=== PATIENT | female | born 1955 | race Caucasian/White ===

== ENCOUNTER 2019-12-01 19:51 | Emergency (ER) | payer MEDICARE, OTHER ==
[~2019-12-01] VITALS: Ht 177.8 cm; Wt 114.0 kg
--- NOTE | 2019-12-01 20:33 | PHYS DOC ---
Past History Past Medical History: Arthritis, Cancer, Diverticulitis, Fibromyalgia, Hypertension, Hypothyroid, Kidney Stones Past Surgical History: Cholecystectomy, Oophorectomy, Other Additional Past Surgical Histo: thyroid, Right mastectomy Smoking: Non-smoker Alcohol Use: None Drug Use: None General Adult EDM: Chief Complaint: ABDOMINAL PAIN HPI: HPI: 64-year-old female presents with 10 day history of intermittent nausea and diarrhea with left-sided abdominal pain. Patient reports 2 days ago patient started to have some vomiting and diarrhea. Reports pain has become more intense with radiation to left flank. Patient does report history of prior kidney stones. Patient does report she was in [place] early October but has not traveled since. Denies known sick contacts. Patient denies fever or chills. Denies shortness of air or cough. Denies trauma. Patient reports taking some oxycodone prior to arrival with some improvement of symptoms. Review of Systems: Review of Systems: Constitutional: Denies fever or chills Eyes: Denies redness or eye pain HENT: Denies nasal congestion or sore throat Respiratory: Denies cough or shortness of breath Cardiovascular: Denies chest pain or palpitations GI: Reports abdominal pain, nausea, vomiting, and diarrhea : Denies dysuria or hematuria Musculoskeletal: Denies joint pain; reports left flank pain Integument: Denies rash or skin lesions Neurologic: Denies headache, focal weakness or sensory changes Complete systems were reviewed and found to be within normal limits, except as documented in this note. Heart Score: HEART Score for Chest Pain: HEART Score for Chest Pain Response (Comments) Value History Slighlty/Non-Suspicious 0 ECG Normal 0 Age > 65 2 Risk Factors 1 or 2 Risk Factors 1 Troponin < Normal Limit 0 Total 3 Risk Factors: Risk Factors: DM, Current or recent (<one month) smoker, HTN, HLP, family h istory of CAD, obesity. Risk Scores: Score 0 - 3: 2.5% MACE over next 6 weeks - Discharge Home Score 4 - 6: 20.3% MACE over next 6 weeks - Admit for Clinical Observation Score 7 - 10: 72.7% MACE over next 6 weeks - Early Invasive Strategies Allergies: Allergies: Allergies Coded Allergies Type Severity Reaction Last Updated Verified NSAIDS (Non-Steroidal Anti-Inflamma Allergy Severe Itching 12/01/19 Yes Sulfa (Sulfonamide Antibiotics) Allergy Severe Itching 12/01/19 Yes carisoprodol Allergy Severe Unknown 12/01/19 Yes fluconazole Allergy Severe Itching 12/01/19 Yes lansoprazole Allergy Severe Unknown 12/01/19 Yes omeprazole Allergy Severe Unknown 12/01/19 Yes aspirin Allergy Unknown Unknown 12/01/19 Yes acetaminophen Adverse Reaction Severe Unknown 12/01/19 Yes hydrocodone Adverse Reaction Severe Unknown 12/01/19 Yes midazolam Adverse Reaction Mild Unknown 12/01/19 Yes Physical Exam: PE: Constitutional: Well developed, well nourished, no acute distress, non-toxic chavez earance HENT: Normocephalic, atraumatic, oropharynx moist Eyes: Conjunctiva normal, no discharge Neck: Normal range of motion, no tenderness, supple Lungs & Thorax: No respiratory distress, equal chest rise and fall Abdomen: Soft, left upper quadrant tenderness, obese Skin: Warm, dry, no erythema, no rash Back: No tenderness, left CVA tenderness Extremities: No tenderness, ROM intact, no edema Neurologic: Alert and oriented X 3, no focal deficits noted Psychologic: Affect normal, judgment normal Current Patient Data: Vital Signs: Vital Signs Date Time Temp Pulse Resp B/P (MAP) Pulse Ox O2 Delivery O2 Flow Rate FiO2 12/01/19 19:51 97.8 86 18 195/92 (126) 98 Room Air EKG: EKG: @2034 NSR at 69bpm, NO ST elevation, QRS 96ms, QT/QTc 394/424ms Radiology/Procedures: Radiology/Procedures: PROCEDURE: CT ABDOMEN PELVIS WO CONTRAST PQRS Compliance Statement: One or more of the following individualized dose reduction techniques were utilized for this examination: 1. Automated exposure control 2. Adjustment of the mA and/or kV according to patient size 3. Use of iterative reconstruction technique CT abdomen/pelvis without contrast 12/01/2019 8:22 PM INDICATION: Severe left flank pain, nausea vomiting and diarrhea. COMPARISON: None available TECHNIQUE: Multiple axial CT images of the abdomen and pelvis were obtained without intravenous contrast. Coronal and sagittal reformats are provided. FINDINGS: Lung bases are clear. Heart size within normal limits. Evaluation of solid abdominal viscera is limited by lack of intravenous contrast. Liver, spleen, and bilateral adrenal glands are within normal limits. Gallbladder is surgically absent. There is mild fullness of the tail the pancreas. Otherwise, there is mild fatty atrophy of the pancreas. Abdominal aorta is normal in course and caliber. There is haziness in the root of small bowel mesentery with shotty lymphadenopathy which may represent mesenteric adenitis. Small and large bowel are normal in caliber. No bowel obstruction is identified. There is focal inflammation in the left lateral abdomen measuring approximately 1.4 x 0.9 cm surrounding a focal area of fat. There is mild adjacent fascial thickening. No associated diverticula is identified. Consideration may be given for epiploic appendagitis. There is a 3 mm calculus at the left ureteropelvic junction resulting in mild to moderate left hydronephrosis. Bilateral renal parapelvic cysts are present. There is a 2 mm nonobstructing calculus in interpolar right kidney. Additional 1 mm nonobstructing calculus is identified in the mid to superior pole the right kidney. Simple appearing bilateral renal cortical cysts are present. No suspicious renal mass. Urinary bladder is within normal limits in degree of end. Prostate and seminal vesicles are normal. No suspicious osseous abnormality is identified. IMPRESSION: 1. There is a 3 mm calculus at the left ureteropelvic junction resulting in mild to moderate left hydronephrosis. Nonobstructing right renal calculi are identified. Bilateral simple appearing renal parapelvic and cortical cysts are identified. 2. Focal area of fat stranding adjacent to the descending colon could reflect epiploic appendagitis. Area of inflammation measures 1.4 x 0.9 cm. 3. Focal hazy attenuation within the root of the small bowel mesentery favors mesenteric adenitis. Recommend 3 month follow-up CT abdomen/pelvis as early lymphoma could have similar appearance. 4. Mild fullness in the tail the pancreas may represent normal pancreatic tissue with mild fatty atrophy of the rest of the pancreas. Attention on follow-up exams may be of benefit. Electronically signed by: Leslie Umana MD (12/01/2019 9:20 PM) [facility] Course & Med Decision Making: Course & Med Decision Making Pertinent Labs and Imaging studies reviewed. (See chart for details) Patient presents with 10 day history of intermittent left-sided abdominal pain with associated nausea, vomiting, and diarrhea. Patient reports now with radiation to left flank. Patient does report history of kidney stone. Afebrile. Denies known sick contacts. Symptomatic treatment provided. IV fluid hydration given. Labs obtained and posted to chart. UA with microscopic hematuria. CT abdomen/pelvis with findings of 3mm left sided UPJ stone with mild hydronephrosis. Flomax provided. CT imaging also noted area consistent for epiploic appendage redness. Some haziness noted about the mesentery with report of induration for follow-up. A copy of CT report provided to patient for outpatient follow-up with her PCP/GI. [facility] report reviewed. Last controlled substance was Percocet which was prescribed 09/07/18. Patient stable for discharge with outpatient follow-up with PCP/GI/urologist. GI referral provided. Discussed findings and plan with patient, who acknowledges understanding and agreement. Dragon Disclaimer: DragHackerHAND Disclaimer: This electronic medical record was generated, in whole or in part, using a voice recognition dictation system. Departure Departure: Impression: Primary Impression: Kidney stone Additional Impressions: Nausea vomiting and diarrhea Appendicitis epiploica Abnormal finding on CT scan Hypokalemia Disposition: 01 HOME, SELF-CARE Condition: STABLE Referrals: PRASAD ALLEN (PCP) LUIS ALFREDO ARNOLD MD Patient Instructions: Diarrhea, Jkzw-pp-Ikwz, Diet for Diarrhea, Adult, Diet for Kidney Stones, Hypokalemia-Brief, Incidental Abnormal Radiological Finding, Kidney Stones, [id number], Nausea and Vomiting, Srbn-[id number], Potassium Content of Foods Additional Instructions: Please give a copy of your CT results to your PCP for future follow-up/re-exami nation/re-imaging Scripts Oxycodone HCl/Acetaminophen (Percocet 5-325 mg Tablet) 1 Each Tablet 0.5-1 TAB PO Q4-6HRS PRN for PAIN MDD 4 Tablet(s), #10 TAB 0 Refills Prov: RUTHANN INTERIANO DO 12/01/19 Ondansetron (ONDANSETRON ODT) 4 Mg Tab.rapdis 1 TAB PO PRN Q6-8HRS PRN for NAUSEA, #16 TAB Prov: RUTHANN INTERIANO DO 12/01/19 Tamsulosin Hcl (FLOMAX) 0.4 Mg Cap.er.24h 1 CAP PO DAILY for kidney stone, #7 CAP Prov: RUTHANN INTERIANO DO 12/01/19 RUTHANN INTERIANO DO Dec 01, 2019 20:32
[2019-12-01] MEDS: ONDANSETRON PF 4 MG/2 ML VIAL. IVP ONE ×2 (20:58→22:11)
[2019-12-01] MEDS: IV NORMAL SALINE 1,000ML 1,000 ML IV ONE (20:59)
[2019-12-01 21:08] LABS: BASO % 0 % (0-3); EOS # 0.2 x10^3/uL (0.0-0.7); EOS % 2 % (0-3); HEMOGLOBIN 13.4 g/dL (12.0-15.5); LYMPH # 1.5 x10^3/uL (1.0-4.8); LYMPH % 16 % (24-48); MEAN CORPUSCULAR HEMOGLOBIN 32 pg (25-35); MEAN CORPUSCULAR HGB CONC 34 g/dL (31-37); MEAN CORPUSCULAR VOLUME 96 fL (79-100); MONO # 0.8 x10^3/uL (0.0-1.1); MONO % 8 % (0-9); NEUT # 6.8 x10^3uL (1.8-7.7); NEUT % 73 % (31-73); PLATELET COUNT 226 x10^3/uL (140-400); RED BLOOD COUNT 4.15 x10^6/uL (3.50-5.40); RED CELL DISTRIBUTION WIDTH 14.7 % (11.5-14.5); WHITE BLOOD COUNT 9.3 x10^3/uL (4.0-11.0)
--- NOTE | 2019-12-01 21:23 | RAD ---
PQRS Compliance Statement: One or more of the following individualized dose reduction techniques were utilized for this examination: 1. Automated exposure control 2. Adjustment of the mA and/or kV according to patient size 3. Use of iterative reconstruction technique CT abdomen/pelvis without contrast 12/01/2019 8:22 PM INDICATION: Severe left flank pain, nausea vomiting and diarrhea. COMPARISON: None available TECHNIQUE: Multiple axial CT images of the abdomen and pelvis were obtained without intravenous contrast. Coronal and sagittal reformats are provided. FINDINGS: Lung bases are clear. Heart size within normal limits. Evaluation of solid abdominal viscera is limited by lack of intravenous contrast. Liver, spleen, and bilateral adrenal glands are within normal limits. Gallbladder is surgically absent. There is mild fullness of the tail the pancreas. Otherwise, there is mild fatty atrophy of the pancreas. Abdominal aorta is normal in course and caliber. There is haziness in the root of small bowel mesentery with shotty lymphadenopathy which may represent mesenteric adenitis. Small and large bowel are normal in caliber. No bowel obstruction is identified. There is focal inflammation in the left lateral abdomen measuring approximately 1.4 x 0.9 cm surrounding a focal area of fat. There is mild adjacent fascial thickening. No associated diverticula is identified. Consideration may be given for epiploic appendagitis. There is a 3 mm calculus at the left ureteropelvic junction resulting in mild to moderate left hydronephrosis. Bilateral renal parapelvic cysts are present. There is a 2 mm nonobstructing calculus in interpolar right kidney. Additional 1 mm nonobstructing calculus is identified in the mid to superior pole the right kidney. Simple appearing bilateral renal cortical cysts are present. No suspicious renal mass. Urinary bladder is within normal limits in degree of end. Prostate and seminal vesicles are normal. No suspicious osseous abnormality is identified. IMPRESSION: 1. There is a 3 mm calculus at the left ureteropelvic junction resulting in mild to moderate left hydronephrosis. Nonobstructing right renal calculi are identified. Bilateral simple appearing renal parapelvic and cortical cysts are identified. 2. Focal area of fat stranding adjacent to the descending colon could reflect epiploic appendagitis. Area of inflammation measures 1.4 x 0.9 cm. 3. Focal hazy attenuation within the root of the small bowel mesentery favors mesenteric adenitis. Recommend 3 month follow-up CT abdomen/pelvis as early lymphoma could have similar appearance. 4. Mild fullness in the tail the pancreas may represent normal pancreatic tissue with mild fatty atrophy of the rest of the pancreas. Attention on follow-up exams may be of benefit. Electronically signed by: Leslie Umana MD (12/01/2019 9:20 PM) [facility]
[2019-12-01 21:24] LABS: CLARITY,URINE HAZY; COLOR,URINE YELLOW; GLUCOSE,URINE NEG (NEG)
[2019-12-01 21:25] LABS: NITRITE,URINE NEG (NEG)
[2019-12-01 21:28] LABS: RBC,URINE >40 /HPF (0-2)
[2019-12-01 21:29] LABS: BACTERIA,URINE MOD /HPF (0-FEW); SQUAMOUS EPITHELIAL CELL,UR MOD /LPF; WBC,URINE RARE /HPF (0-4)
[2019-12-01 21:30] LABS: BILIRUBIN,URINE MOD (NEG)
[2019-12-01 21:34] LABS: ALBUMIN 3.3 g/dL (3.4-5.0); ALBUMIN/GLOBULIN RATIO 0.8 (1.0-1.7); ALK PHOS 97 U/L (46-116); ALT (SGPT) 22 U/L (14-59); ANION GAP 11 (6-14); AST (SGOT) 16 U/L (15-37); BLOOD UREA NITROGEN 11 mg/dL (7-20); BUN/CREATININE RATIO 11 (6-20); CALCIUM 8.7 mg/dL (8.5-10.1); CARBON DIOXIDE 25 mmol/L (21-32); CHLORIDE 105 mmol/L (98-107); GFR 55.5; GLUCOSE 120 mg/dL (70-99); LIPASE 88 U/L (73-393); SODIUM 141 mmol/L (136-145); TOTAL BILIRUBIN 0.3 mg/dL (0.2-1.0); TOTAL PROTEIN 7.3 g/dL (6.4-8.2)
[2019-12-01] MEDS: POTASSIUM CHLORIDE 20 MEQ TABLET.ER. PO ONE (21:51)
[2019-12-01] MEDS: TAMSULOSIN 0.4 MG CAP.ER.24H. PO ONE (21:51)
[2019-12-01] MEDS ORDERED: TAMS0.4C97 PO (22:03)
[2019-12-01] MEDS ORDERED: OXYC-325 PO (22:03)
[2019-12-01] MEDS ORDERED: ONDA4TAB12 PO (22:03)
[2019-12-01 22:23] VITALS: BP 178/94
--- NOTE | 2019-12-01 22:40 | EKG ---
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
== END 2019-12-01 22:15 | disposition home or self-care (01) ==
LOC: ER 19:51
DX: N20.0 Calculus of kidney (principal); R11.2 Nausea with vomiting, unspecified; R19.7 Diarrhea, unspecified; K36 Other appendicitis; R93.5 Abnormal findings on diagnostic imaging of other abdominal regions, including retroperitoneum; E87.6 Hypokalemia; M79.7 Fibromyalgia; I10 Essential (primary) hypertension; E03.9 Hypothyroidism, unspecified; M19.90 Unspecified osteoarthritis, unspecified site; Z87.442 Personal history of urinary calculi; Z90.49 Acquired absence of other specified parts of digestive tract; Z90.722 Acquired absence of ovaries, bilateral; Z90.11 Acquired absence of right breast and nipple; Z88.6 Allergy status to analgesic agent; Z88.2 Allergy status to sulfonamides; Z88.5 Allergy status to narcotic agent; Z88.8 Allergy status to other drugs, medicaments and biological substances
CPT/HCPCS: 36415; 74176; 80053; 81001; 82553; 83605; 83690; 83735; 84484; 85025; 93005; 96361; 96374; 96375; 96376; 99285; J2405; J3010; J7030

== ENCOUNTER → 2020-04-04 | Outpatient (CLI) | payer MEDICARE, OTHER ==
[~2020-04-04] MED LIST: ONDA4TAB12 PO; OXYC-325 PO; TAMS0.4C97 PO
--- NOTE | 2020-04-04 14:15 | RAD ---
SHOULDER 2+V LEFT DATE: 04/04/2020 12:00 AM INDICATION: LEFT SHOULDER PAIN, HX OF TORN ROTATOR CUFF COMPARISON: None. FINDINGS: Bones: There is no evidence of acute fracture or dislocation. Joints: Mild acromioclavicular joint degenerative changes. Moderate glenohumeral joint degenerative changes. Miscellaneous: Left axillary surgical clips IMPRESSION: No acute osseous abnormality. Moderate glenohumeral joint degenerative changes and mild AC joint degenerative changes. Electronically signed by: Salvatore Santiago MD (04/04/2020 2:12 PM) [id number]
== END | disposition home or self-care (01) ==
LOC: RAD 11:42
PROVIDERS: ATTEND Physician Assistant
DX: M19.012 Primary osteoarthritis, left shoulder (principal)
CPT/HCPCS: 73030

== ENCOUNTER → 2020-10-20 | Outpatient (CLI) | payer MEDICARE, OTHER ==
--- NOTE | 2020-10-20 12:49 | RAD ---
EXAM: Chest, 2 views. HISTORY: Chest pain. COMPARISON: None. FINDINGS: 2 views of the chest are obtained. There is no infiltrate, pleural fusion or pneumothorax. The heart is normal in size. There are surgical clips overlying the thorax. IMPRESSION: No acute pulmonary finding. Electronically signed by: Carli Cespedes MD (10/20/2020 12:47 PM) [id number]
== END ==
LOC: PMG 12:30
PROVIDERS: ATTEND Family Medicine
DX: Z01.818 Encounter for other preprocedural examination (principal); R07.9 Chest pain, unspecified
CPT/HCPCS: 71046

== ENCOUNTER 2021-08-02 16:45 | Emergency (ER) | payer MEDICARE, OTHER ==
[~2021-08-02] VITALS: Ht 175.3 cm; Wt 118.0 kg
[2021-08-02 19:00] LABS: BILIRUBIN,URINE SMALL (NEG); CLARITY,URINE CLOUDY; COLOR,URINE YELLOW; GLUCOSE,URINE NEG (NEG); NITRITE,URINE NEG (NEG); UROBILINOGEN,URINE 0.2 mg/dL (0.2 mg/dL)
[2021-08-02 19:01] LABS: BACTERIA,URINE MOD /HPF (0-FEW); RBC,URINE TNTC /HPF (0-2); SQUAMOUS EPITHELIAL CELL,UR MOD /LPF
--- NOTE | 2021-08-02 19:22 | PHYS DOC ---
Past History Past Medical History: Arthritis, Cancer, Diverticulitis, Fibromyalgia, Hypertension, Hypothyroid, Kidney Stones Past Surgical History: No Surgical History Additional Past Surgical Histo: thyroid, Right mastectomy Smoking: Non-smoker Alcohol Use: None Drug Use: None General Adult EDM: Chief Complaint: ABDOMINAL PAIN HPI: HPI: ".. I think I having another kidney... stone.. I think it is moving.. it hurts now down lower in my abdomen. .." Patient is a 66 year old female who presents with above hx and complaints of renal colic on left flank.. Pt. seen in waiting room because of no beds. Pt. follows with Dr. Germain. Pt. has past medical history of arthritis, breast cancer, diverticulitis, fibromyalgia, hypertension, hypothyroidism, kidney stones, and deconditioning. No history of trauma. No history of immunosuppression. No history of specific ill contacts. Review of Systems: Review of Systems: Constitutional: Denies fever or chills Eyes: Denies change in visual acuity HENT: Denies nasal congestion or sore throat Respiratory: Denies cough or shortness of breath Cardiovascular: Denies chest pain or edema GI: Complains of flank abdominal pain, nausea,. Vomiting, bloody stools or diarrhea : Denies dysuria Musculoskeletal: Complains of flank back pain or joint pain Integument: Denies rash Neurologic: Denies headache, focal weakness or sensory changes Endocrine: Denies polyuria or polydipsia Lymphatic: Denies swollen glands Psychiatric: Denies depression or anxiety Family History: Family History: Noncontributory to presentation Current Medications: Current Meds: Current Medications Medications (Trade) Dose Ordered Sig/Artur Start Time Stop Time Status Last Admin Dose Admin Ciprofloxacin (Cipro) 500 mg 1X ONCE 08/02/21 19:30 08/02/21 19:31 UNV Allergies: Allergies: Allergies Coded Allergies Type Severity Reaction Last Updated Verified NSAIDS (Non-Steroidal Anti-Inflamma Allergy Severe Itching 12/01/19 Yes Sulfa (Sulfonamide Antibiotics) Allergy Severe Itching 12/01/19 Yes carisoprodol Allergy Severe Unknown 12/01/19 Yes fluconazole Allergy Severe Itching 12/01/19 Yes lansoprazole Allergy Severe Unknown 12/01/19 Yes omeprazole Allergy Severe Unknown 12/01/19 Yes aspirin Allergy Unknown Unknown 12/01/19 Yes acetaminophen Adverse Reaction Severe Unknown 12/01/19 Yes hydrocodone Adverse Reaction Severe Unknown 12/01/19 Yes midazolam Adverse Reaction Mild Unknown 12/01/19 Yes Physical Exam: PE: Constitutional: cristóbal acute distress, non-toxic appearance. [] HENT: Normocephalic, atraumatic, bilateral external ears normal, oropharynx moist, no oral exudates, nose normal. [] Eyes: PERRLA, EOMI, conjunctiva normal, no discharge. Glasses Neck: Normal range of motion, no tenderness, supple, no stridor. [] Cardiovascular:Heart rate regular rhythm, no murmur [] Lungs & Thorax: Bilateral breath sounds equal and apex on auscultation [] Abdomen: Bowel sounds decreased, soft, left flank tenderness, no masses, no pulsatile masses. Left flank. No focal area of rebound. Pain on left flank that radiates to lower pelvic area Skin: Warm, dry, no erythema, no rash. [] Back: No tenderness, left CVA tenderness. [] Extremities: No tenderness, no cyanosis, no clubbing, ROM intact, no edema. [] Neurologic: Alert and oriented X 3, normal motor function, normal sensory function, no focal deficits noted. [] Psychologic: Affect anxious, judgement normal, mood normal. [] Current Patient Data: Labs: Laboratory Tests Test 08/02/21 17:18 Urine Collection Type Clean catch Urine Color Yellow Urine Clarity Cloudy Urine pH 6.0 Urine Specific Butler 1.025 Urine Protein 30 mg/dl (NEG-TRACE) Urine Glucose (UA) Neg mg/dL (NEG) Urine Ketones (Stick) Trace mg/dL (NEG) Urine Blood Large (NEG) Urine Nitrite Neg (NEG) Urine Bilirubin Small (NEG) Urine Urobilinogen Dipstick 0.2 mg/dL (0.2 mg/dL) Urine Leukocyte Esterase Neg (NEG) Urine RBC Tntc /HPF (0-2) Urine WBC 5-10 /HPF (0-4) Urine Squamous Epithelial Cells Mod /LPF Urine Bacteria Mod /HPF (0-FEW) Vital Signs: Vital Signs Date Time Temp Pulse Resp B/P (MAP) Pulse Ox O2 Delivery O2 Flow Rate FiO2 08/02/21 17:52 98.0 83 18 186/98 (127) 99 Room Air EKG: EKG: [] Radiology/Procedures: Radiology/Procedures: [[address] [address] IMAGING REPORT Signed PATIENT: VIRGILIO CUBA ACCOUNT: [id number] : 1955 LOCATION: ER AGE: 66 SEX: F EXAM STATUS: REG ER ORD. PHYSICIAN: DAPHNE COON MD REASON: Lt flank pain PROCEDURE: CT ABDOMEN PELVIS WO CONTRAST INDICATION: Reason: Lt flank pain / Spl. Instructions: / History: COMPARISON: November 2019 TECHNIQUE: Axial CT images were obtained through the abdomen and pelvis without intravenous contrast. One or more of the following individualized dose reduction techniques were utilized for this examination: 1. Automated exposure control; 2. Adjustment of the mA and/or kV according to patient size; 3. Use of iterative reconstruction technique. FINDINGS: Vascular: Scattered calcific atherosclerosis. Hepatobiliary: Postcholecystectomy. No perihepatic hemorrhage. Pancreas: Fullness of pancreatic tail again seen. Spleen: Spleen unremarkable. Renal/Bladder: Left-sided hydronephrosis and hydroureter with 3 mm left ureterovesicular junction stone. Right renal cyst. There is distention of right renal calyces or peripelvic cyst formation. Nonobstructive right renal stone. Urinary bladder is partially distended. Gastrointestinal: No appendiceal inflammatory changes. Repeat demonstration of some edema at the mesentery. Small fat-containing umbilical hernia and suspected inguinal hernia. Degenerative changes of the spine with osteophyte formation. Multilevel central canal and neural foraminal stenosis. IMPRESSION: * Left-sided hydronephrosis and hydroureter with ureterovesicular junction stone. * Similar appearance of edema to the mesentery with some scattered small lymph nodes within. * Similar appearance of the pancreatic tail compared to prior with again some fullness at the tail. Electronically signed by: Diane Corea MD (08/02/2021 8:03 PM) DESKTOP- [id number] DICTATED AND SIGNED BY: DIANE COREA MD DATE: 08/02/21 1952 CC: DAPHNE COON MD; PRADEEP GERMAIN MD ~[facility] 0 ][address] [address] IMAGING REPORT Signed PATIENT: VIRGILIO CUBA ACCOUNT: [id number] : 1955 LOCATION: ER AGE: 66 SEX: F EXAM STATUS: REG ER ORD. PHYSICIAN: DAPHNE COON MD REASON: Renal colic PROCEDURE: ACUTE ABDOMEN SERIES EXAM: Frontal view of the chest, AP views of the abdomen in upright and supine positions. CLINICAL INDICATION: Reason: Renal colic / Spl. Instructions: / History: COMPARISON: None. FINDINGS and IMPRESSION: The heart is not enlarged. Mediastinal and hilar contours are normal. No focal parenchymal airspace opacity. No pleural effusion or pneumothorax. Axillary surgical clips. No abnormal small or large bowel dilatation. Moderate colonic stool content. No abnormal soft tissue mass effect. No suspicious calcifications are seen. No free intraperitoneal gas. Electronically signed by: Rob Delacruz MD (08/02/2021 9:23 PM) [facility] DICTATED AND SIGNED BY: ROB DELACRUZ MD DATE: 08/02/212122 CC: DAPHNE COON MD; PRADEEP GERMAIN MD ~[facility]0 0 Heart Score: C/O Chest Pain: N/A Risk Factors: Risk Factors: DM, Current or recent (<one month) smoker, HTN, HLP, family history of CAD, obesity. Risk Scores: Score 0 - 3: 2.5% MACE over next 6 weeks - Discharge Home Score 4 - 6: 20.3% MACE over next 6 weeks - Admit for Clinical Observation Score 7 - 10: 72.7% MACE over next 6 weeks - Early Invasive Strategies Course & Med Decision Making: Course & Med Decision Making Pertinent Labs and Imaging studies reviewed. (See chart for details) Patient take Zofran 8 mg at 4 times a day for nausea and vomiting. Push fluids. Push vitamin C drinks. Take Cipro 500 mg twice a day. Flomax daily until stone is passed. Follow-up primary care. Follow-up urology. If you do not have a urologist consider follow-up with Dr. Oreilly [phone], Impression: 1. Renal colic- 3 mm stone-left UVC 2. Urinary tract infection [] Claudette Disclaimer: Claudette Disclaimer: This electronic medical record was generated, in whole or in part, using a voice recognition dictation system. Departure Departure: Referrals: PRADEEP GERMAIN MD (PCP) Scripts Oxycodone Hcl/Acetaminophen (PERCOCET 5-325 MG TABLET ) 1 Each Tablet 1 TAB PO PRN QID PRN for renal colic MDD 4 Tablet(s) for 5 Days, #30 TAB 0 Refills Prov: DAPHNE COON MD 08/02/21 Tamsulosin Hcl (FLOMAX) 0.4 Mg Cap.er.24h 0.4 MG PO DAILY for kidney stone for 30 Days, #30 CAP.SR Prov: DAPHNE COON MD 08/02/21 Ciprofloxacin Hcl (CIPRO) 500 Mg Tablet 1 TAB PO BID for uti for 7 Days, #14 TAB 0 Refills Prov: DAPHNE COON MD 08/02/21 Ondansetron Hcl (ZOFRAN) 4 Mg Tablet 8 MG PO QIDPRN PRN for NAUSEA/VOMITING, #30 TAB Prov: DAPHNE COON MD 08/02/21 Dragon Disclaimer This chart was dictated in whole or in part using Voice Recognition software in a busy, high-work load, and often noisy Emergency Department environment. It may contain unintended and wholly unrecognized errors or omissions. DAPHNE COON MD Aug 02, 2021 19:22
[2021-08-02] MEDS ORDERED: CIPR500T94 PO (19:36)
[2021-08-02] MEDS ORDERED: ONDA4TAB7 PO (19:36)
[2021-08-02] MEDS ORDERED: IV RINGERS SOLUTION,LACTATED 1,000 ML IV SCH (19:45)
[2021-08-02] MEDS: ONDANSETRON ODT 4 MG TAB.RAPDIS PO ONE ×2 (19:49→22:34)
[2021-08-02] MEDS ORDERED: CIPROFLOXACIN HCL 500 MG TABLET PO ONE (20:00)
[2021-08-02] MEDS ORDERED: ONDANSETRON PF 4 MG/2 ML VIAL. IVP ONE (20:00)
[2021-08-02] MEDS ORDERED: FAMOTIDINE 20 MG/2 ML VIAL IVP ONE (20:00)
[2021-08-02] MEDS ORDERED: MORPHINE SULFATE 10 MG/ML SYRINGE. SQ ONE (20:00)
--- NOTE | 2021-08-02 20:05 | RAD ---
INDICATION: Reason: Lt flank pain / Spl. Instructions: / History: COMPARISON: November 2019 TECHNIQUE: Axial CT images were obtained through the abdomen and pelvis without intravenous contrast. One or more of the following individualized dose reduction techniques were utilized for this examinat ion: 1. Automated exposure control; 2. Adjustment of the mA and/or kV according to patient size; 3 . Use of iterative reconstruction technique. FINDINGS: Vascular: Scattered calcific atherosclerosis. Hepatobiliary: Postcholecystectomy. No perihepatic hemorrhage. Pancreas: Fullness of pancreatic tail again seen. Spleen: Spleen unremarkable. Renal/Bladder: Left-sided hydronephrosis and hydroureter with 3 mm left ureterovesicular junction sto ne. Right renal cyst. There is distention of right renal calyces or peripelvic cyst formation. Nonobs tructive right renal stone. Urinary bladder is partially distended. Gastrointestinal: No appendiceal inflammatory changes. Repeat demonstration of some edema at the mese ntery. Small fat-containing umbilical hernia and suspected inguinal hernia. Degenerative changes of the spine with osteophyte formation. Multilevel central canal and neural fora mary stenosis. IMPRESSION: * Left-sided hydronephrosis and hydroureter with ureterovesicular junction stone. * Similar appearance of edema to the mesentery with some scattered small lymph nodes within. * Similar appearance of the pancreatic tail compared to prior with again some fullness at the tail. Electronically signed by: Robbi Hernandez MD (08/02/2021 8:03 PM) [id number]
[2021-08-02 20:37] LABS: BASO % 0 % (0-3); EOS % 0 % (0-3); HEMATOCRIT 37.1 % (36.0-47.0); HEMOGLOBIN 12.6 g/dL (12.0-15.5); LYMPH # 1.5 x10^3/uL (1.0-4.8); LYMPH % 16 % (24-48); MEAN CORPUSCULAR HEMOGLOBIN 32 pg (25-35); MEAN CORPUSCULAR HGB CONC 34 g/dL (31-37); MEAN CORPUSCULAR VOLUME 96 fL (79-100); MONO # 0.8 x10^3/uL (0.0-1.1); MONO % 9 % (0-9); NEUT # 7.1 x10^3uL (1.8-7.7); NEUT % 74 % (31-73); PLATELET COUNT 235 x10^3/uL (140-400); RED BLOOD COUNT 3.88 x10^6/uL (3.50-5.40); RED CELL DISTRIBUTION WIDTH 15.3 % (11.5-14.5); WHITE BLOOD COUNT 9.5 x10^3/uL (4.0-11.0)
[2021-08-02 20:49] LABS: CALCIUM 8.7 mg/dL (8.5-10.1); GFR 55.1; POTASSIUM 3.5 mmol/L (3.5-5.1)
--- NOTE | 2021-08-02 21:25 | RAD ---
EXAM: Frontal view of the chest, AP views of the abdomen in upright and supine positions. CLINICAL INDICATION: Reason: Renal colic / Spl. Instructions: / History: COMPARISON: None. FINDINGS and IMPRESSION: The heart is not enlarged. Mediastinal and hilar contours are normal. No focal parenchymal airspace o pacity. No pleural effusion or pneumothorax. Axillary surgical clips. No abnormal small or large bowel dilatation. Moderate colonic stool content. No abnormal soft tissu e mass effect. No suspicious calcifications are seen. No free intraperitoneal gas. Electronically signed by: Rob Amin MD (08/02/2021 9:23 PM) WAYLON
[2021-08-02] MEDS ORDERED: TAMS0.4C97 PO (22:03)
[2021-08-02 22:07] VITALS: BP 160/91
[2021-08-02] MEDS ORDERED: OXYC1TAB15 PO (22:25)
[2021-08-02] MEDS ORDERED: TAMSULOSIN 0.4 MG CAP.ER.24H. PO ONE (22:30)
== END 2021-08-02 22:36 | disposition home or self-care (01) ==
LOC: ER 16:45
DX: N23 Unspecified renal colic (principal); N39.0 Urinary tract infection, site not specified; I10 Essential (primary) hypertension; Z88.2 Allergy status to sulfonamides; Z88.8 Allergy status to other drugs, medicaments and biological substances
CPT/HCPCS: 36415; 74022; 74176; 80048; 81001; 82150; 82550; 85025; 87086; 96361; 96372; 96374; 96375; 99285; J2270; J2405; J3490; J7120; Q0162

== ENCOUNTER 2021-12-18 09:51 | Emergency (ER) | payer MEDICARE, OTHER ==
[~2021-12-18] VITALS: Ht 175.3 cm; Wt 121.6 kg
[~2021-12-18 09:51] MED LIST changes: +CIPR500T94 PO; +ONDA4TAB7 PO; +OXYC1TAB15 PO
[2021-12-18] MEDS ORDERED: oxyCODONE/APAP 5/325 1 TAB TABLET PO ONE (10:30)
[2021-12-18] MEDS ORDERED: IV NORMAL SALINE 1,000ML 1,000 ML IV ONE (10:30)
--- NOTE | 2021-12-18 10:49 | PHYS DOC ---
Past History Past Medical History: Arthritis, Cancer, Diverticulitis, Fibromyalgia, Hypertension, Hypothyroid, Kidney Stones Past Surgical History: No Surgical History Additional Past Surgical Histo: thyroid, Right mastectomy Smoking: Non-smoker Alcohol Use: None Drug Use: None General Adult EDM: Chief Complaint: FLANK PAIN HPI: HPI: Patient is a 66-year-old female presents with right-sided flank pain that radiat es down to her lower right abdomen. Patient reports symptoms started yesterday. Patient also had some nausea this morning. Denies vomiting. Patient took 8 mg of Zofran this morning which helped with symptoms. Denies taking anything for pain. Patient has a history of kidney stones and states that her symptoms are similar to previous episodes. Denies trouble urinating or pain with urination. Denies fevers. History of hypertension, hyperlipidemia, fibromyalgia, kidney stones, diverticulitis, hypothyroidism. Review of Systems: Review of Systems: ROS At least 10 ROS systems have been reviewed and are negative except as documented in the HPI. General: Negative except as outlined in HPI above. Skin: Negative except as outlined in HPI above. HEENT: Negative except as outlined in HPI above. Neck: Negative except as outlined in HPI above. Respiratory: Negative except as outlined in HPI above.. Cardiovascular: Negative except as outlined in HPI above. Abdomen: Negative except as outlined in HPI above. : Negative except as outlined in HPI above. Back/MSK: Negative except as outlined in HPI above. Neuro: Negative except as outlined in HPI above. Psych: Negative except as outlined in HPI above. Current Medications: Current Meds: Current Medications Medications (Trade) Dose Ordered Sig/[facility] Start Time Stop Time Status Last Admin Dose Admin Oxycodone/ Acetaminophen (Percocet 5/325) 1 tab 1X ONCE 12/18/21 10:30 12/18/21 10:31 DC Sodium Chloride 1,000 ml @ 1,000 mls/hr 1X ONCE 12/18/21 10:30 12/18/21 11:29 Allergies: Allergies: Allergies Coded Allergies Type Severity Reaction Last Updated Verified NSAIDS (Non-Steroidal Anti-Inflamma Allergy Severe Itching 12/01/19 Yes Sulfa (Sulfonamide Antibiotics) Allergy Severe Itching 12/01/19 Yes carisoprodol Allergy Severe Unknown 12/01/19 Yes fluconazole Allergy Severe Itching 12/01/19 Yes lansoprazole Allergy Severe Unknown 12/01/19 Yes omeprazole Allergy Severe Unknown 12/01/19 Yes aspirin Allergy Unknown Unknown 12/01/19 Yes acetaminophen Adverse Reaction Severe Unknown 12/01/19 Yes hydrocodone Adverse Reaction Severe Unknown 12/01/19 Yes midazolam Adverse Reaction Mild Unknown 12/01/19 Yes Physical Exam: PE: Constitutional: Well developed, well nourished, no acute distress, non-toxic appearance. [] HENT: Normocephalic, atraumatic, bilateral external ears normal, oropharynx moist, no oral exudates, nose normal. [] Eyes: PERRLA, EOMI, conjunctiva normal, no discharge. [] Neck: Normal range of motion, no tenderness, supple, no stridor. [] Cardiovascular:Heart rate regular rhythm, no murmur [] Lungs & Thorax: Bilateral breath sounds clear to auscultation [] Abdomen: Bowel sounds normal, soft, right lower abdominal tenderness Skin: Warm, dry, no erythema, no rash. [] Back: No tenderness, right-sided CVA tenderness Extremities: No tenderness, no cyanosis, no clubbing, ROM intact, no edema. [] Neurologic: Alert and oriented X 3, normal motor function, normal sensory function, no focal deficits noted. [] Psychologic: Affect normal, judgement normal, mood normal. [] EKG: EKG: [] Radiology/Procedures: Radiology/Procedures: []PQRS Compliance Statement: One or more of the following individualized dose reduction techniques were utilized for this examination: 1. Automated exposure control 2. Adjustment of the mA and/or kV according to patient size 3. Use of iterative reconstruction technique CT abdomen/pelvis without contrast 12/18/2021 10:34 AM INDICATION: Right flank pain, right-sided lower abdominal pain COMPARISON: CT abdomen/pelvis 08/02/2021 TECHNIQUE: Multiple axial CT images of the abdomen and pelvis were obtained without intravenous contrast. Coronal and sagittal reformats are provided. FINDINGS: Lung bases are clear. Heart size is within normal limits. Evaluation of solid abdominal viscera is limited by lack of intravenous contrast. Liver, spleen, adrenal glands and pancreas are normal in appearance. Gallbladder surgically absent. Abdominal aorta is normal in course and caliber. No there is hazy attenuation within the root of the small bowel mesentery with shotty lymphadenopathy, not significantly changed since 08/02/2021. Findings could represent mesenteric panniculitis. There is no free fluid or free intraperitoneal air. Small and large bowel are normal in caliber. There is no evidence for bowel obstruction. There are no pericolonic inflammatory changes. A normal, nondilated appendix is visualized without adjacent inflammatory changes. There is a 3 mm nonobstructing calculus in interpolar right kidney. Right renal cortical cyst measures 3.9 cm. Bilateral renal parapelvic cysts are identified. Mild right hydroureteronephrosis with a 6 mm calculus identified within the distal right ureter, approximately 4 to 5 cm from the right ureterovesicular junction. Urinary bladder is within normal limits given degree of distention. No suspicious pelvic mass. No suspicious osseous abnormality is identified. IMPRESSION: There is a 6 mm calculus within the distal right ureter, 4-5 cm from the right ureterovesicular junction, resulting in mild right hydroureteronephrosis. Additional 3 mm nonobstructing calculus identified in the interpolar right kidney. Hazy attenuation within the root of small bowel mesentery with shotty lymphadenopathy favors mesenteric panniculitis, stable dating back to 08/02/2021. Electronically signed by: Leslie Umana MD (12/18/2021 11:01 AM) [id number] Heart Score: C/O Chest Pain: No Risk Factors: Risk Factors: DM, Current or recent (<one month) smoker, HTN, HLP, family history of CAD, obesity. Risk Scores: Score 0 - 3: 2.5% MACE over next 6 weeks - Discharge Home Score 4 - 6: 20.3% MACE over next 6 weeks - Admit for Clinical Observation Score 7 - 10: 72.7% MACE over next 6 weeks - Early Invasive Strategies Course & Med Decision Making: Course & Med Decision Making Pertinent Labs and Imaging studies reviewed. (See chart for details) [] 66-year-old female presents with right-sided flank pain that radiates into her right lower abdomen. Patient has a history of kidney stones and symptoms have been similar to past episodes. Patient has had to have lithotripsy in the past to treat kidney stone. Denies dysuria or fever. Work-up in ER consisted of CT abdomen and pelvis, CBC, CMP, urinalysis. Patient's pain treated in the ER. Patient reports taking 8 mg of Zofran prior to arrival for nausea. Patient given a liter NS bolus. CT shows there is a 6 mm calculus within the distal right ureter. Additional 3 mm nonobstructing calculus identified in the interpolar right kidney. All labs are unremarkable. Urinalysis shows large blood. Discussed all results with patient. Patient given Flomax while in the ER also sending patient home with prescription. Patient also sent home with Percocet for pain control and Zofran for nausea. Advised patient to drink plenty of f luids. Patient also given referral for urology. Discussed return precautions with patient. Patient verbalized understanding of discharge instructions. Dragon Disclaimer: Dragon Disclaimer: This electronic medical record was generated, in whole or in part, using a voice recognition dictation system. Departure Departure: Impression: Primary Impression: Kidney stone Disposition: 01 HOME / SELF CARE / HOMELESS Condition: STABLE Referrals: PRADEEP FRYE MD (PCP) [facility] Patient Instructions: Kidney Stones, [id number] Additional Instructions: You are seen emergency room for flank and abdominal pain. Your CT showed a kidney stone on the right side. Sending you home with Flomax, Percocet, Zofran to help with discomfort and nausea. Make sure you are drinking plenty of f luids. I am also giving you referral for urology. Please call them today to set up an appointment. Return to the emergency room if you have worsening symptoms or concerns. EMERGENCY DEPARTMENT GENERAL DISCHARGE INSTRUCTIONS Thank you for coming to [facility] (ED) today and trusting us with you care. We trust that you had a positivie experience in our Emergency Department. If you wish to speak to the department management, you may call the director at [phone]. YOUR FOLLOW UP INSTRUCTIONS ARE FOLLOWS: 1. Do you have a private Doctor? If you do not have a private doctor, please ask for a resource list of physicians or clinics that may be able to assist you with follow up care. 2. The Emergency Physician has interpreted your x-rays. The X-Ray specialist will also review them. If there is a change in the findings, you will be notified in 48 hours when at all possible. 3. A lab test or culture has been done, your results will be reviewed and you will be notified if you need a change in treatment. ADDITIONAL INSTRUCTIONS AND INFORMATION: 1. Your care today has been supervised by a physician who is specially trained in emergency care. Many problems require more than one evaluation for a complete diagnosis and treatment. We recommend that you schedule your follow up appointment as recommended to ensure complete treatment of you illness or injury. If you are unable to obtain follow up care and continue to have a problem, or if your condition worsens, we recommend that you return to the ED. 2. We are not able to safely determine your condition over the phone nor are we able to give sound medical advice over the phone. For these safety reasons, if you call for medical advice we will ask you to come to the ED for further evaluation. 3. If you have any questions regarding these discharge instructions please call the ED at [phone]. SAFETY INFORMATION: In the interest of safety, wellness, and injury prevention; we encourage you to wear your sealbelt, if you smoke; quite smoking, and we encourage family to use a protective helmet for bicycling and other sporting events that present an increased risk for head injury. IF YOUR SYMPTOMS WORSEN OR NEW SYMPTOMS DEVELOP, OR YOU HAVE CONCERNS ABOUT YOUR CONDITION; OR IF YOUR CONDITION WORSENS WHILE YOU ARE WAITING FOR YOUR FOLLOW UP APPOINTMENT; EITHER CONTACT YOUR PRIMARY CARE DOCTOR, THE PHYSICIAN WHOSE NAME AND NUMBER YOU WERE GIVEN, OR RETURN TO THE ED IMMEDIATELY. Scripts Tamsulosin Hcl (FLOMAX) 0.4 Mg Cap.er.24h 1 CAP PO DAILY for kidney stone for 14 Days, #14 CAP 0 Refills Prov: JENNIFER SHIPMAN APRN 12/18/21 Ondansetron (ONDANSETRON ODT) 4 Mg Tab.rapdis 1 TAB PO PRN Q6-8HRS for zofran for 7 Days, #16 TAB Prov: JENNIFER SHIPMAN APRN 12/18/21 Oxycodone Hcl/Acetaminophen (PERCOCET 5-325 MG TABLET ) 1 Each Tablet 1 TAB PO PRN BID PRN for SEVERE PAIN 7-10 MDD 2 Tablet(s) for 5 Days, #10 TAB 0 Refills Prov: JENNIFER SHIPMAN APRN 12/18/21 JENNIFER SHIPMAN APRN December 18, 2021 10:49
[2021-12-18 10:54] LABS: BASO % 1 % (0-3); EOS # 0.2 x10^3/uL (0.0-0.7); EOS % 2 % (0-3); HEMATOCRIT 40.4 % (36.0-47.0); HEMOGLOBIN 13.5 g/dL (12.0-15.5); LYMPH # 1.2 x10^3/uL (1.0-4.8); LYMPH % 15 % (24-48); MEAN CORPUSCULAR HEMOGLOBIN 32 pg (25-35); MEAN CORPUSCULAR HGB CONC 33 g/dL (31-37); MEAN CORPUSCULAR VOLUME 97 fL (79-100); MONO # 0.5 x10^3/uL (0.0-1.1); MONO % 6 % (0-9); NEUT # 6.1 x10^3uL (1.8-7.7); NEUT % 76 % (31-73); PLATELET COUNT 241 x10^3/uL (140-400); RED BLOOD COUNT 4.16 x10^6/uL (3.50-5.40); RED CELL DISTRIBUTION WIDTH 14.7 % (11.5-14.5)
[2021-12-18 11:02] LABS: CALCIUM 8.8 mg/dL (8.5-10.1); CREATININE 0.9 mg/dL (0.6-1.0); GFR 62.3; POTASSIUM 4.2 mmol/L (3.5-5.1)
--- NOTE | 2021-12-18 11:04 | RAD ---
PQRS Compliance Statement: One or more of the following individualized dose reduction techniques were utilized for this examinat ion: 1. Automated exposure control 2. Adjustment of the mA and/or kV according to patient size 3. Use of iterative reconstruction technique CT abdomen/pelvis without contrast 12/18/2021 10:34 AM INDICATION: Right flank pain, right-sided lower abdominal pain COMPARISON: CT abdomen/pelvis 08/02/2021 TECHNIQUE: Multiple axial CT images of the abdomen and pelvis were obtained without intravenous contr ast. Coronal and sagittal reformats are provided. FINDINGS: Lung bases are clear. Heart size is within normal limits. Evaluation of solid abdominal vis cera is limited by lack of intravenous contrast. Liver, spleen, adrenal glands and pancreas are gina l in appearance. Gallbladder surgically absent. Abdominal aorta is normal in course and caliber. No t here is hazy attenuation within the root of the small bowel mesentery with shotty lymphadenopathy, no t significantly changed since 08/02/2021. Findings could represent mesenteric panniculitis. There is no free fluid or free intraperitoneal air. Small and large bowel are normal in caliber. There is no evidence for bowel obstruction. There are no pericolonic inflammatory changes. A normal, nondilated appendix is visualized without adjacent infla mmatory changes. There is a 3 mm nonobstructing calculus in interpolar right kidney. Right renal cortical cyst measure s 3.9 cm. Bilateral renal parapelvic cysts are identified. Mild right hydroureteronephrosis with a 6 mm calculus identified within the distal right ureter, approximately 4 to 5 cm from the right uretero vesicular junction. Urinary bladder is within normal limits given degree of distention. No suspicious pelvic mass. No suspicious osseous abnormality is identified. IMPRESSION: There is a 6 mm calculus within the distal right ureter, 4-5 cm from the right ureterovesicular junct ion, resulting in mild right hydroureteronephrosis. Additional 3 mm nonobstructing calculus identifie d in the interpolar right kidney. Hazy attenuation within the root of small bowel mesentery with shotty lymphadenopathy favors mesenter ic panniculitis, stable dating back to 08/02/2021. Electronically signed by: Leslie Umana MD (12/18/2021 11:01 AM) [id number]
[2021-12-18 11:05] LABS: BACTERIA,URINE MOD /HPF (0-FEW); CLARITY,URINE CLOUDY; COLOR,URINE YELLOW; GLUCOSE,URINE NEG (NEG); NITRITE,URINE NEG (NEG); RBC,URINE >40 /HPF (0-2); SQUAMOUS EPITHELIAL CELL,UR MANY /LPF; UROBILINOGEN,URINE 0.2 mg/dL (0.2 mg/dL)
[2021-12-18 11:08] LABS: ALBUMIN 3.2 g/dL (3.4-5.0); ALBUMIN/GLOBULIN RATIO 0.9 (1.0-1.7); TOTAL BILIRUBIN 0.4 mg/dL (0.2-1.0); TOTAL PROTEIN 6.8 g/dL (6.4-8.2)
[2021-12-18] MEDS ORDERED: OXYC1TAB15 PO ×2 (11:19→11:37)
[2021-12-18] MEDS ORDERED: ONDA4TAB12 PO (11:37)
[2021-12-18] MEDS ORDERED: TAMS0.4C97 PO (11:37)
[2021-12-18 11:55] VITALS: BP 147/84
[2021-12-18] MEDS ORDERED: TAMSULOSIN 0.4 MG CAP.ER.24H. PO ONE (12:00)
== END 2021-12-18 12:46 | disposition home or self-care (01) ==
LOC: ER 09:51
DX: N13.2 Hydronephrosis with renal and ureteral calculous obstruction (principal); M19.90 Unspecified osteoarthritis, unspecified site; M79.7 Fibromyalgia; I10 Essential (primary) hypertension; E03.9 Hypothyroidism, unspecified; Z87.442 Personal history of urinary calculi; Z90.11 Acquired absence of right breast and nipple; Z88.6 Allergy status to analgesic agent; Z88.2 Allergy status to sulfonamides; Z88.5 Allergy status to narcotic agent; Z88.8 Allergy status to other drugs, medicaments and biological substances
CPT/HCPCS: 36415; 74176; 80053; 81001; 85025; 87086; 96360; 99284; J7030

== ENCOUNTER → 2021-12-27 | Outpatient (CLI) | payer MEDICARE, OTHER ==
[2021-12-18 11:55] VITALS: BP 147/84
--- NOTE | 2021-12-27 16:09 | RAD ---
XR LUMBAR SPINE 4+V History: Chronic low back pain, right radiculopathy Comparison: CT abdomen and pelvis 12/18/2021 Technique: 5 views of the lumbar spine. Findings: There are 5 non-rib bearing lumbar vertebral segments. There is no evidence of fracture. No destructive osseous lesions. Alignment is normal. Minimal facet degenerative changes. With mild disc space narrowing at L5-S1. Lumbar endplate osteophytes greatest at L1-L2. Sacroiliac joints are unremarkable. Cholecystectomy clips in the right upper quadrant. IMPRESSION: 1. Mild degenerative changes of the lumbar spine. If there is concern for radiculopathy, recommend l umbar MRI for further evaluation. Electronically signed by: Elvis Srinivasan MD (12/27/2021 4:07 PM) [id number]
== END ==
LOC: RAD 14:55
PROVIDERS: ATTEND Physician Assistant
DX: M47.26 Other spondylosis with radiculopathy, lumbar region (principal); M48.061 Spinal stenosis, lumbar region without neurogenic claudication; M25.78 Osteophyte, vertebrae; Z98.890 Other specified postprocedural states
CPT/HCPCS: 72110